=== PATIENT | male | born 1980 | race Hispanic/Latino ===

== ENCOUNTER 2018-10-22 19:44 | Inpatient (IN) | payer SELFPAY ==
[2018-10-22] MEDS ORDERED: Mag-Al 1200 mg/1200 mg/30 ML UDCUP ONE (20:25)
[2018-10-22] MEDS ORDERED: Lidocaine Viscous Sol 2% 15 ml UD Cup ONE (20:25)
[2018-10-22 20:31] LABS: #Basophils 0.1 thou/uL (0.0-0.2); #Eosinphils 0.1 thou/uL (0.0-0.7); #Lymphocytes 2.8 thou/uL (1.20-3.40); #Monocytes 0.8 thou/uL (0.11-0.59); #Neutrophils 4.6 thou/uL (1.40-6.50); %Basophils 1.5 % (0.0-1.0); %Eosinophils 1.6 % (0.0-10.0); %Lymphocytes 32.8 % (21.0-51.0); %Monocytes 9.9 % (0.0-10.0); %Neutrophils 54.3 % (42.0-75.0); Hemoglobin 13.9 g/dL (14.0-18.0); Mean Corpuscular HGB CONC 35.5 g/dL (32.0-36.0); Mean Corpuscular Hemoglobin 31.9 pg (27.0-31.0); Mean Corpuscular Volume 89.8 fL (78.0-98.0); Mean Platelet Volume 7.2 fL (7.4-10.4); Platelet Count 312 thou/uL (130-400); RBC Distribution Width 13.9 % (11.5-14.5); Red Blood Cell (RBC) Count 4.35 mill/uL (4.70-6.10); White Blood Cell (WBC) Count 8.5 thou/uL (4.8-10.8)
[2018-10-22 20:33] LABS: Bacteria/HPF None Seen HPF (None Seen); Bilirubin Negative (Negative); Blood, Urine 1+ (Negative); Clarity Clear (Clear); Glucose, Urine (Dipstick) Normal (Negative); Leukocyte Negative Leu/uL (Negative); Nitrite Negative (Negative); Protein, Urine (Dipstick) 20 mg/dL (Neg-Trace); RBC/HPF 0-3 HPF (0-3); Squamous Epithelial None Seen HPF (0-3); Urobilinogen Normal mg/dL (Less than 2); WBC/HPF 0-3 HPF (0-3)
[2018-10-22 20:51] LABS: ALT (SGPT) 10 U/L (8-55); AST (SGOT) 21 U/L (5-34); Albumin 4.4 g/dL (3.5-5.0); Alkaline Phosphatase 87 U/L (40-150); Anion Gap 15 mmol/L (10-20); BUN (Urea Nitrogen) 29 mg/dL (8.9-20.6); Bilirubin, Total 0.8 mg/dL (0.2-1.2); Calc. Creatinine Clearance 0 mL/min (70-130); Calcium 9.2 mg/dL (7.8-10.44); Carbon Dioxide 25 mmol/L (22-29); Chloride 91 mmol/L (98-107); Estimated GFR-MDRD 25; Globulin 4.1 g/dL (2.4-3.5); Glucose 96 mg/dL (70-105); Lipase 33 U/L (8-78); Protein, Total 8.5 g/dL (6.0-8.3); Sodium 128 mmol/L (136-145)
[2018-10-22 20:55] LABS: Potassium 2.9 mmol/L (3.5-5.1)
[2018-10-22] MEDS ORDERED: Magnesium 2 GM/50 ML BAG (IN WATER) ONE (21:56)
[2018-10-22] MEDS ORDERED: hydrALAZINE 20 MG/ML VIAL SLOW IVP PRN (22:09)
[2018-10-22] MEDS ORDERED: Senokot S 8.6-50 MG TAB PO PRN (22:09)
[2018-10-22] MEDS ORDERED: Nitroglycerin 0.4 MG TAB (25 Tab Bottle) SL PRN (22:09)
[2018-10-22] MEDS ORDERED: Benzonatate 100 MG CAP PO PRN (22:09)
[2018-10-22] MEDS ORDERED: cloNIDine 0.1 MG TAB PO PRN (22:09)
[2018-10-22] MEDS ORDERED: Bisacodyl 5 MG TAB PO PRN (22:09)
[2018-10-22] MEDS ORDERED: Diabetic Tussin 200 MG/10 ML UDCUP PO PRN (22:09)
[2018-10-22] MEDS ORDERED: Ondansetron PF 4 MG/2 ML Vial IVP PRN (22:09)
[2018-10-22] MEDS ORDERED: Sodium Chloride 0.65% Nasal 44 ML BOT EA NARE PRN (22:09)
[2018-10-22] MEDS ORDERED: Loratadine 10 MG TAB PO PRN (22:09)
[2018-10-22] MEDS ORDERED: Mag-Al Plus 1200 MG/1200 MG/120 MG/30 ML UDCUP PO PRN (22:15)
[2018-10-22] MEDS ORDERED: Sodium Chloride 0.9% 1,000 ML IV SCH (22:15)
[2018-10-22] MEDS ORDERED: Potassium Chloride 20 MEQ TAB PO SCH (22:45)
[2018-10-22] MEDS ORDERED: Clindamycin/D5W 300 MG/50 ML BAG IVPB SCH (23:59)
--- NOTE | 2018-10-23 00:35 | HP ---
PRIMARY CARE PHYSICIAN: None. CHIEF COMPLAINT: Abdominal pain and mouth pain. HISTORY OF PRESENT ILLNESS: Mr. Mock is a 37-year-old male, who recently moved here from [place] a month ago, who then came to the emergency room with varied complaints. He told the emergency room physician that he was having abdominal pain, for which he received Maalox in the ER with improvement in his symptoms. By the time I evaluated the patient, his main complaint was now pain in his mouth, roof of the mouth and his jaw, upper and lower. He is Burkinan-speaking only and a customer solutions coordinator lucia was used with some difficulty. According to the ER physician, he has seen physicians in [place] about his abdominal pain, which is ongoing for about 8 years. He denies any recent illnesses, but when I asked him, he said yes he has been having some fevers, but could not grade it. He denies any blood in his stools. He denies any weight loss. He denies any chest pain, shortness of breath, dysuria, frequency, or urgency. He keeps pointing to his mouth and complains of pain in his lower jaw, upper jaw and inside of the mouth. In the emergency room upon presentation, he was hemodynamically stable except blood pressure being elevated to 155/94. His lab work was impressive for a potassium of 2.9, sodium 128, chloride of 91. His BUN was 29 and creatinine 2.80. No baseline available. Lipase was normal. Urinalysis was normal. His WBC count is within normal limit and there was no left shift. He did report that he has not been able to eat or drink very well because of his mouth and teeth pain. He was given GI cocktail in the emergency room with improvement in his symptoms. He is now being admitted under observation status for acute renal insufficiency and hypokalemia. PAST MEDICAL HISTORY: Unknown. Sexually transmitted disease. PAST SURGICAL HISTORY: Denies any surgeries. PSYCHIATRIC HISTORY: Depression. SOCIAL HISTORY: Moved here from [place] 1 month ago. He drinks socially, but denies any smoking or drug abuse. FAMILY HISTORY: He reports high blood pressure in his mother and cirrhosis of liver. ALLERGIES: NO KNOWN MEDICATION ALLERGIES. CURRENT MEDICATIONS: None. Reviewed with the patient. REVIEW OF SYSTEMS: A 14-point review of system is done and it is negative except for those mentioned in the history and physical. LABORATORY DATA: CBC is unremarkable. Serum chemistry shows sodium 128, potassium 2.9, chloride 91, BUN 29, creatinine 2.80. Magnesium is normal. Lipase is normal. Urinalysis has no glucose, ketones, or protein in the urine. No bacteria. A 12-lead EKG by my review shows sinus rhythm at 62 beats per minute with some Q waves in the inferior leads. Left ventricular hypertrophy seen. PHYSICAL EXAMINATION: VITAL SIGNS: Upon presentation, blood pressure 155/94, pulse of 60, respirations 16, saturating 99% on room air, temperature 97.9. GENERAL: No acute distress. Lying in bed comfortably. He appears well nourished and well kept. HEENT: There is a small swelling in the buccal mucosa of his right cheek. He has poor dental hygiene, but no obvious abscesses were seen. Mucous membrane is moist and pink. No oropharyngeal exudate or erythema. Head is normocephalic and atraumatic. NECK: Supple without any lymphadenopathy, JVD, or bruit. CHEST: Clear to auscultation without any wheezing, rales, or rhonchi. Rate and rhythm are regular without any murmurs, rubs, or gallops. ABDOMEN: Soft, nontender, nondistended with positive bowel sounds. EXTREMITIES: Free of any cyanosis, clubbing, or edema. NEUROLOGICAL: Nonfocal. SKIN: Free of any rashes or bruises. IMPRESSION AND PLAN: 1. Acute renal insufficiency. This is most likely due to poor p.o. intake because of the teeth pain and dehydration. He will be gently resuscitated with normal saline keeping a close eye on his sodium numbers. We will request consultation with Nephrology in the morning and obtain a renal ultrasound. The patient does not have any blood in his urine suggestive of nephrolithiasis. He is also not spilling blood or protein in the urine suggestive of chronic renal disease. 2. Hyponatremia. I suspect hypovolemic because of dehydration. We will check urine sodium and osmolality as well as serum osmolality. At this time, we will start him on normal saline and recheck sodium in few hours. No baseline is available. The patient seems to be asymptomatic with this. 3. Hypokalemia. The patient has received 40 mEq of the potassium chloride IV in the ER and we will repeat one more dose. Magnesium was checked and was within normal limits. We will recheck in the morning. 4. Hypertension. We will monitor and add p.r.n. antihypertensives. If his blood pressure continues to be elevated, he can be started on low-dose amlodipine for long-term. 5. Oral pain. I suspect a dental abscess, which is not visible without closer oral examination. We will empirically treat him with oral antibiotics namely clindamycin for now. He does not have any evidence of sepsis or widespread infection at this time. If his symptoms do not resolve, oral imaging is warranted. At this time, he simply needs to follow up with a dentist for possible teeth extraction and further x-rays. 6. Deep venous thrombosis and gastrointestinal prophylaxis. DISPOSITION: Mr. Nish Smith is currently being admitted to the hospital with hyponatremia, hypokalemia, and renal failure. Estimated length of stay is less than 2 midnights. Further management will depend upon his clinical course. Job ID: [id number]
[2018-10-23] MEDS: Potassium Chloride 20 MEQ in Premix Bag 1 BAG IVPB SCH ×2 (01:12→03:18)
[2018-10-23] MEDS: Clindamycin/D5W 300 MG in Premix Bag 1 BAG IVPB SCH ×5 (02:23→23:33)
[2018-10-23 05:32] LABS: #Basophils 0.1 thou/uL (0.0-0.2); #Eosinphils 0.1 thou/uL (0.0-0.7); #Monocytes 0.8 thou/uL (0.11-0.59); #Neutrophils 4.5 thou/uL (1.40-6.50); %Basophils 0.9 % (0.0-1.0); %Eosinophils 1.8 % (0.0-10.0); %Lymphocytes 26.9 % (21.0-51.0); %Monocytes 11.2 % (0.0-10.0); %Neutrophils 59.1 % (42.0-75.0); Hemoglobin 12.9 g/dL (14.0-18.0); Mean Corpuscular HGB CONC 35.5 g/dL (32.0-36.0); Mean Corpuscular Hemoglobin 32.2 pg (27.0-31.0); Mean Corpuscular Volume 90.6 fL (78.0-98.0); Mean Platelet Volume 7.3 fL (7.4-10.4); Platelet Count 284 thou/uL (130-400); RBC Distribution Width 13.9 % (11.5-14.5); Red Blood Cell (RBC) Count 4.02 mill/uL (4.70-6.10); White Blood Cell (WBC) Count 7.5 thou/uL (4.8-10.8)
[2018-10-23 05:50] LABS: Anion Gap 13 mmol/L (10-20); BUN (Urea Nitrogen) 27 mg/dL (8.9-20.6); Calc. Creatinine Clearance 35 mL/min (70-130); Calcium 8.9 mg/dL (7.8-10.44); Carbon Dioxide 28 mmol/L (22-29); Chloride 97 mmol/L (98-107); Estimated GFR-MDRD 30; Glucose 101 mg/dL (70-105); Potassium 3.4 mmol/L (3.5-5.1); Sodium 135 mmol/L (136-145)
[2018-10-23] MEDS ORDERED: Potassium Chloride 20 MEQ TAB PO SCH (07:45)
[2018-10-23] MEDS: Saccharomyces boulardii 250 MG CAP PO SCH (07:58)
[2018-10-23] MEDS: Sodium Chloride 0.9% 1,000 ML IV SCH ×2 (07:58→15:59)
[2018-10-23] MEDS: Heparin 5,000 UNITS/ML VIAL SC SCH ×2 (07:58→21:40)
--- NOTE | 2018-10-23 08:07 | ULT ---
Renal sonogram HISTORY: Renal insufficiency. FINDINGS: The right kidney measures up to 7.4 cm. Mild cortical thinning. No hydronephrosis. Left kidney is partially obscured by extensive bowel gas. It measures up to 5.4 cm. Thinning of the c ortex. No hydronephrosis. Urinary bladder obscured by bowel gas. IMPRESSION: Renal cortical thinning and atrophy. No evidence of urinary tract obstruction.
--- NOTE | 2018-10-23 10:04 | CON ---
DATE OF CONSULTATION: 10/23/2018 REASON FOR CONSULTATION: Acute renal failure. CHIEF COMPLAINT: Oral pain. HISTORY OF PRESENT ILLNESS: The patient is a 38-year-old male who just recently moved from [place] to this area, who presents to the ER with complaints of oral pain associated with poor oral intake as well as abdominal pain, which has improved with Maalox, administered in the ER. The patient was found to have elevated creatinine, hence Nephrology consult. The patient reported developing oral sores after an oral sex several months ago in [place] and has been having oral pain since then. He also reported dental caries for which all bad teeth are removed and he uses dentures, which are not present at this time. He reported some occasional fever, but denied nausea, vomiting, change in bowel habit, loose stools, dysuria, hematuria, shortness of breath, chest pain, leg swelling, or headache. The patient denied prior history of kidney disease and also denied any family member with kidney disease on dialysis. He also denied use of NSAIDs, but admitted to using some medication which he was prescribed while in [place], and he does not know their names. PAST MEDICAL HISTORY: Status post sexually transmitted infection. PAST SURGICAL HISTORY: None. PSYCHIATRIC HISTORY: Depression. FAMILY HISTORY: Reported high blood pressure and liver cirrhosis in mother and prostate problem in father. SOCIAL HISTORY: The patient recently moved from [place]. Drinks alcohol occasionally, but denied smoking or recreational drug use. ALLERGIES: NO KNOWN DRUG ALLERGIES REPORTED. HOME MEDICATIONS: None currently. REVIEW OF SYSTEMS: Twelve-point review of systems performed was negative other than pertinent positives and negatives included in the History of Present Illness. DIAGNOSTIC DATA: CBC today showed WBC count of 7.5, hemoglobin of 12.9, MCV of 90.6, and platelets of 284. Of note, on presentation yesterday, hemoglobin was 13.9. BMP today showed sodium 135, potassium 3.4, chloride 97, CO2 of 28, BUN 27, creatinine 2.44, glucose 101, and calcium 8.9. On presentation yesterday, however, sodium was 128, potassium 2.9, chloride 91, CO2 of 25, BUN 29, and creatinine 2.80. Urinalysis on presentation yesterday showed light yellow clear urine with specific gravity of 1.009 and pH of 6.0, ketone, nitrite, bilirubin, and leukocyte esterase were all negative. White blood was 1+; however, microscopy showed 0 to 3 rbc and wbc. Urine osmolality performed yesterday was 259 while urine sodium was less than 20. ASSESSMENT AND PLAN: 1. Acute kidney injury. This most likely due to hemodynamic factors related to poor oral intake due to oral pain. Chronic kidney disease at baseline, however, could not be ruled out. Creatinine is trending down with IV fluids. We will continue IV fluid and monitor renal function. We will also get renal ultrasound. 2. Hyponatremia: This was felt to be due to volume depletion with appropriate ADH secretion. Serum sodium is trending up with IV fluid. We will continue same. 3. Hypokalemia: This was felt to be due to poor oral intake and gross body depletion. Repleted with appropriate increase. We will give additional 20 mEq of potassium chloride. 4. Oral pain: Deferred to primary attending for treatment. We will follow along with you. Many thanks for involving us in the care of this patient. Job ID: [id number]
[2018-10-23 14:15] VITALS: BMI 22.0
--- NOTE | 2018-10-23 18:32 | PRG ---
DATE OF SERVICE: 10/23/2018 SUBJECTIVE: Mr. Nish Smith is a 38-year-old male, who recently moved to this country from [place] one month ago. He presents with several complaints including abdominal pain and oral pain. He has been admitted with acute kidney injury, although his baseline is unknown. He has been seen in consultation with Dr. Merritt. Using an stars coordinator, I have interviewed the patient. He continues to complain of some diffuse jaw and oral pain that is difficult to describe. He is concerned that he had the same pain after an oral sexual encounter, and was told that his oral pain was due to an STD. Regarding his abdominal pain, it was improved with Mylanta in the ER, although he continues to complain of some pain today. He states that he has had this pain for many years and has seen doctors in [place]. He was given medications, but he cannot remember what these are. OBJECTIVE: VITAL SIGNS: Blood pressure is 109/68, pulse 54, O2 saturation is 99% on room air, respirations 16, temperature 98.2. GENERAL: This is a thin male, resting comfortably in bed, in no acute distress. HEENT: His head is atraumatic and normocephalic. He has no upper dentition. I have examined his oral mucosa and can find no evidence of obvious lesions or blisters. NECK: Trachea is midline. No JVD. CV: S1 and S2. Regular rate and rhythm. No appreciable murmurs, rubs, or gallops. LUNGS: Regular respiratory rate and pattern, overall clear. ABDOMEN: Positive bowel sounds. Soft. EXTREMITIES: No edema. SKIN: Warm and dry. LABORATORY DATA: WBC 7.5, hemoglobin 12.9, hematocrit 36.4, platelets are 284. Chemistry; sodium 135, potassium 3.4, anion gap 13, BUN 27, creatinine 2.44. ASSESSMENT: 1. Acute kidney injury at presentation, originally suspected secondary to dehydration, unfortunately we have no previous baseline, although today renal ultrasound shows renal cortical thinning and atrophy with no evidence of urinary tract obstruction. 2. Abdominal pain, unclear etiology, the patient tolerating full diet, normal bowel movements. 3. Oral pain, unclear etiology. Dental abscess originally suspected. 4. Hypokalemia on arrival, improved after repletion. PLAN: Dr. Merritt of Nephrology has been consulted and very much appreciate his recommendations. Regarding his abdominal pain and his continued oral pain, I will obtain a mandible x-ray to rule out any gross abnormalities, and I have advised the patient to seek dental care with a dentist. We will continue to monitor his kidney function closely and will defer to Dr. Merritt for management. I will discuss the case with him tomorrow. We will continue IV clindamycin for prophylactic coverage of dental abscess at this time. Further recommendations based on hospital course. Job ID: [id number]
--- NOTE | 2018-10-23 19:04 | RAD ---
2 views of abdomen: 10/23/2018 COMPARISON: None HISTORY: Pain FINDINGS: Upright imaging demonstrates no free intraperitoneal air or air-fluid levels. The bowel gas pattern appears nonobstructed. There is scattered stool overlying the colon and there is probable debris within the stomach. IMPRESSION: No evidence for free intraperitoneal air or small bowel obstruction.
--- NOTE | 2018-10-23 19:13 | RAD ---
SIX VIEWS MANDIBLE: 10/23/18 HISTORY: Diffuse jaw and dental pain. FINDINGS: There is no evidence of a fracture. No lytic or sclerotic osseous lesion is identified. Remaining vis ualized osseous structures have a normal appearance. The limited visualized paranasal sinuses also ap pear clear. IMPRESSION: No acute osseous abnormality is seen involving the mandible. POS: [place]
[2018-10-23] MEDS: Acetaminophen 325 MG TAB PO PRN (23:33)
[2018-10-24 05:04] LABS: Anion Gap 13 mmol/L (10-20); BUN (Urea Nitrogen) 24 mg/dL (8.9-20.6); BUN/Creatinine Ratio 11.27; Calc. Creatinine Clearance 40 mL/min (70-130); Calcium 8.9 mg/dL (7.8-10.44); Carbon Dioxide 29 mmol/L (22-29); Chloride 97 mmol/L (98-107); Estimated GFR-MDRD 35; Glucose 92 mg/dL (70-105); Phosphorus 3.5 mg/dL (2.3-4.7); Sodium 136 mmol/L (136-145)
[2018-10-24 05:09] LABS: Potassium 2.9 mmol/L (3.5-5.1)
[2018-10-24] MEDS ORDERED: Potassium Chloride 20 MEQ in Premix Bag 1 BAG IVPB SCH (05:30)
[2018-10-24] MEDS ORDERED: Potassium Chloride 20 MEQ TAB PO SCH ×2 (05:30→07:30)
[2018-10-24] MEDS: Sodium Chloride 0.9% 1,000 ML IV SCH ×3 (05:50→23:40)
[2018-10-24] MEDS: Clindamycin/D5W 300 MG in Premix Bag 1 BAG IVPB SCH ×3 (05:51→18:03)
[2018-10-24] MEDS: Heparin 5,000 UNITS/ML VIAL SC SCH ×2 (08:37→23:38)
[2018-10-24] MEDS: Saccharomyces boulardii 250 MG CAP PO SCH (08:38)
--- NOTE | 2018-10-24 11:11 | PRG ---
DATE OF SERVICE: 10/24/2018 SUBJECTIVE: A 38-year-old male, recently relocated from [place], who has been followed up for renal failure. The patient still complains of some jaw pain, but abdominal pain has subsided. He is tolerating oral intake more. Denied nausea, vomiting, dysuria, hematuria, or leg swelling. OBJECTIVE: VITAL SIGNS: Temperature 97.8, pulse 61, respiratory rate 16, SpO2 of 99% on room air, blood pressure is 129/79. GENERAL: Middle-age male, in no obvious distress. Afebrile. Anicteric. Acyanotic. HEENT: Normocephalic, atraumatic. Pupils are reacting to light. All upper teeth are removed. Oral mucosa, however, is moist. CARDIOVASCULAR: Regular rhythm and rate with normal heart sounds 1 and 2. RESPIRATORY: Good air entry bilaterally with no crackle or rhonchi or use of accessory muscles. GI: Full, soft, nontender, nondistended with normal bowel sounds. EXTREMITIES: Grossly normal looking, atraumatic with no edema, erythema, or cyanosis. Distal pulses are palpable. NEUROLOGIC: Conscious, alert, oriented x3 with appropriate mental status. Cranial nerves 2 through 12 are grossly intact. The patient moves all extremities. DIAGNOSTIC DATA: Renal function panel today showed sodium 136, potassium 2.9, chloride 97, CO2 of 29, BUN 24, creatinine 2.13, glucose 92, calcium 8.9, phosphorus 3.5, albumin 4.0. Magnesium is 1.9. 25-hydroxy vitamin D total is 34.0. PTH intact is 272.9. Of note, on presentation, creatinine was 2.8. Renal ultrasound showed bilateral small kidneys with right measuring 7.4 and left measuring 5.4. Thinning of the cortex was noted, but no hydronephrosis. ASSESSMENT AND PLAN: 1. Acute kidney injury superimposed on chronic kidney disease. Elevated PTH and small kidneys are consistent with chronic kidney disease. 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 Creatinine is trending downward from 2.8 to 2.1 with IV fluids, consistent with reversible component. We will continue IV fluid until creatinine drops to a pauline and stabilize. 2. Hypokalemia: Due to poor intake as well as saline-induced diuresis. We will replete with potassium chloride and monitor levels. 3. Secondary hyperparathyroidism: Due to chronic kidney disease. . Job ID: [id number]
[2018-10-24] MEDS ORDERED: Acyclovir 400 mg Tablet PO SCH (15:15)
--- NOTE | 2018-10-24 16:55 | PRG ---
DATE OF SERVICE: 10/24/2018 SUBJECTIVE: Mr. Nish Smith is a 38-year-old male, who recently moved to this country from [place] about 1 month ago. He presents with several complaints including abdominal pain and oral pain. He has been admitted with acute on chronic kidney injury, although his baseline creatinine is unknown. He is being seen in consultation with Dr. Merritt. The patient continues to complain of oral pain throughout his mouth. He denies any further abdominal pain. He has no other complaints today. OBJECTIVE: VITAL SIGNS: Blood pressure is 127/82, pulse is 58, O2 saturation is 100% on room air, respirations 14, temperature 98.6. GENERAL: The patient is a thin, small statured male, resting comfortably in bed, in no acute distress HEENT: Head is atraumatic and normocephalic. Careful inspection of the oral mucosa reveals no obvious vesicles or lesions. NECK: Trachea is midline. No JVD. CV: S1 and S2. Regular rate and rhythm. No appreciable murmurs, rubs, or gallops. LUNGS: Regular respiratory rate and pattern. Clear to auscultation bilaterally. ABDOMEN: Positive bowel sounds. Soft, nontender. EXTREMITIES: No edema. SKIN: Warm and dry. No rashes or lesions. NEUROLOGIC: The patient is nonfocal. LABORATORY DATA: Sodium 136, potassium 2.9, chloride 97, carbon dioxide 29, BUN is 24, creatinine 2.13. ASSESSMENT: 1. Acute on chronic kidney disease, creatinine continues to trend down, although baseline is on known. 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 2. Oral pain. The patient upon further interview, the patient describes a previous infection consistent with herpes outbreak. 3. Persistent hypokalemia. PLAN: I have discussed this case with Dr. Merritt of Nephrology, who recommends continued IV fluid resuscitation until the patient's baseline creatinine is discovered. Regarding his oral pain, I will go ahead and cover him with acyclovir for presumed herpes outbreak. We will continue clindamycin in the meantime. I suspect that he will be discharged in the near future, when cleared by Nephrology. Further recommendations based on hospital course. Job ID: [id number]
[2018-10-24] MEDS: Acetaminophen 325 MG TAB PO PRN ×2 (18:03→23:39)
[2018-10-24] MEDS: Potassium Chloride 20 MEQ TAB PO SCH (18:03)
[2018-10-24] MEDS: Acyclovir 400 mg Tablet PO SCH (23:39)
[2018-10-25] MEDS: Clindamycin/D5W 300 MG in Premix Bag 1 BAG IVPB SCH ×4 (02:10→18:24)
[2018-10-25 05:27] LABS: #Basophils 0.1 thou/uL (0.0-0.2); #Eosinphils 0.3 thou/uL (0.0-0.7); #Lymphocytes 2.5 thou/uL (1.20-3.40); #Monocytes 0.8 thou/uL (0.11-0.59); #Neutrophils 3.5 thou/uL (1.40-6.50); %Basophils 1.2 % (0.0-1.0); %Eosinophils 3.7 % (0.0-10.0); %Lymphocytes 35.7 % (21.0-51.0); %Monocytes 10.5 % (0.0-10.0); Hemoglobin 12.1 g/dL (14.0-18.0); Mean Corpuscular HGB CONC 35.1 g/dL (32.0-36.0); Mean Corpuscular Hemoglobin 32.6 pg (27.0-31.0); Mean Corpuscular Volume 92.9 fL (78.0-98.0); Mean Platelet Volume 7.8 fL (7.4-10.4); Platelet Count 269 thou/uL (130-400); Red Blood Cell (RBC) Count 3.71 mill/uL (4.70-6.10); White Blood Cell (WBC) Count 7.1 thou/uL (4.8-10.8)
[2018-10-25 05:58] LABS: Albumin 3.6 g/dL (3.5-5.0); Anion Gap 11 mmol/L (10-20); BUN (Urea Nitrogen) 20 mg/dL (8.9-20.6); Calc. Creatinine Clearance 43 mL/min (70-130); Calcium 8.7 mg/dL (7.8-10.44); Carbon Dioxide 23 mmol/L (22-29); Chloride 105 mmol/L (98-107); Estimated GFR-MDRD 38; Glucose 82 mg/dL (70-105); Phosphorus 2.9 mg/dL (2.3-4.7); Potassium 3.5 mmol/L (3.5-5.1); Sodium 135 mmol/L (136-145)
--- NOTE | 2018-10-25 08:31 | PRG ---
DATE OF SERVICE: 10/25/2018 SUBJECTIVE: A 38-year-old male recently relocated from [place], who presented with abdominal pain and jaw pain. The patient was; however, found to have renal insufficiency necessitating Nephrology consult. Abdominal pain has resolved, while jaw pain has subsided. There is no history of nausea or vomiting. The patient remained afebrile. OBJECTIVE: VITAL SIGNS: Temperature 97.7, pulse 58, respiratory rate 16, SpO2 of 98% on room air, and blood pressure is 125/84. GENERAL: Middle-age male, in no distress. Afebrile. Anicteric. Acyanotic. HEENT: Normocephalic and atraumatic. Oral mucosa is moist. CARDIOVASCULAR: Regular rhythm and rate with normal heart sounds one and two. RESPIRATORY: Good air entry bilaterally with no crackle or rhonchi or use of accessory muscles. GI: Abdomen is full, soft, nontender, and nondistended with normal bowel sounds. EXTREMITIES: Grossly normal looking atraumatic with no edema or erythema. Distal pulses are palpable. NEUROLOGIC: Conscious, alert, and oriented x3 with appropriate mental status. Cranial nerves 2 through 12 are grossly intact. DIAGNOSTIC DATA: CBC showed WBC count of 7.1, hemoglobin of 12.1, MCV of 92.9, and platelet of 269. Renal function panel showed sodium 135, potassium 3.5, chloride 105, CO2 of 23, creatinine 1.98, glucose 82, calcium 8.7, phosphorus 2.9, and albumin 3.6. ASSESSMENT AND PLAN: 1. Acute kidney injury superimposed on chronic kidney disease stage 3: This most likely due to hemodynamic factors related to volume depletion. Creatinine has improved from 2.8 to 1.9. This seems to have stabilized at around 2. 2. Chronic kidney disease stage 3: Etiology is unclear, but ultrasound showed small kidneys. 3. 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 The patient admitted to use of nonsteroidal anti-inflammatory drugs in [place]. Biopsy could not be obtained at this time due to shrunken kidney. 4. Secondary hyperparathyroidism. PLAN: We will discontinue IV fluid therapy. Neihart oral intake is advised. The patient is to follow up in 2 weeks, precisely on November 04 at 1 o'clock. He also was instructed to do repeat renal function panel on November 03. DISPOSITION: The patient can be discharged from Nephrology point of view. Job ID: [id number]
[2018-10-25] MEDS: Potassium Chloride 20 MEQ TAB PO SCH ×2 (09:23→16:14)
[2018-10-25] MEDS: Acetaminophen 325 MG TAB PO PRN (09:23)
[2018-10-25] MEDS: Acyclovir 400 mg Tablet PO SCH ×2 (09:23→16:14)
[2018-10-25] MEDS: Saccharomyces boulardii 250 MG CAP PO SCH (09:23)
[2018-10-25] MEDS: Heparin 5,000 UNITS/ML VIAL SC SCH (09:24)
[2018-10-25 16:14] VITALS: BP 159/93; TEMP 97.8
--- NOTE | 2018-10-25 23:58 | DIS ---
DATE OF ADMISSION: 10/22/2018 DATE OF DISCHARGE: 10/25/2018 CHIEF COMPLAINT ON ADMISSION: Abdominal pain and mouth pain. DISCHARGE DIAGNOSES: 1. [id number] kidney disease, baseline creatinine around 2. Creatinine at baseline, resolved, stage III. 2. Abdominal pain, abdominal x-ray negative for any acute pathology, suspect mild gastritis, relieved with proton pump inhibitor. 3. Oral pain, presumed secondary to possible oral herpes simplex virus infection versus oral abscess. 4. Persistent hypokalemia, status post repletion. BRIEF HOSPITAL COURSE: Mr. Nish Smith is a 38-year-old Arabic-speaking only male, who recently moved to this country from [place] 1 month ago. He presented to the emergency department with a chief complaint of abdominal pain and oral pain. The patient stated that he had received some medications for his persistent abdominal pain in [place], but could not recall what the names were. He has not been on medications for some time. Regarding his oral pain, initially a dental abscess was suspected. The patient has no dentition on the top of his mouth and uses dentures. He stated that the pain was consistent with a previous STD that he was told he had an outbreak of in his mouth in [place]. The pain was similar. He did not know what the infection was, but after further interview with the patient, I suspect this was a herpes outbreak. His lab work was notable for an initial creatinine of 2.8. Nephrology was consulted and recommended IV fluid resuscitation. Also on arrival, he was hyponatremic with a sodium of 128, and his potassium was 2.9. He was given IV fluid resuscitation fairly aggressively, and his creatinine did trend down to 1.98, which Dr. Merritt thinks is around his baseline. 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 He did have a renal ultrasound, which did reveal renal cortical thinning and atrophy consistent with chronic disease. He was initiated on prophylactic antibiotic coverage for potential dental abscess with clindamycin 600 mg IV q.6 along with acyclovir to cover possible herpes outbreak, although upon my oral exam, I could never appreciate any vesicles, concerning patches or lesions in the mouth consistent with infection. His abdominal pain completely resolved with PPI. He continues to complain of some oral pain, although it is improved somewhat since admission. His oral intake has greatly improved. DISCHARGE DISPOSITION: Home. DISCHARGE CONDITION: Stable. FOLLOWUP: We have explained in detail that the patient needs to establish a PCP with [facility] to continue to receive his medical care and for followup care on his mouth with a dentist. Regarding his renal followup, he will follow up with Dr. Merritt in 2 weeks on November 04 at 1 p.m. He will have repeat renal function panel on November 03 prior to his appointment. All questions answered to the patient's satisfaction. DISCHARGE MEDICATIONS: The patient will be discharged on: 1. Acyclovir 400 mg p.o. t.i.d. for the next 4 days. 2. Clindamycin 300 mg p.o. q.8 for the next 5 days. 3. Protonix 40 mg daily. 4. Potassium supplement of 20 mEq one tablet p.o. daily. The patient discharged in good condition this afternoon. Job ID: [id number]
== END 2018-10-25 19:07 | disposition home or self-care (01) | DRG 683 ==
LOC: ERS 19:44 → 2SW 23:30 → OBSVTOIN 23:30 → 2NO 10-24 20:06
PROVIDERS: ADMIT Internal Medicine; ATTEND Internal Medicine
DX: N17.9 Acute kidney failure, unspecified (principal); B00.89 Other herpesviral infection; E87.1 Hypo-osmolality and hyponatremia; I12.9 Hypertensive chronic kidney disease with stage 1 through stage 4 chronic kidney disease, or unspecified chronic kidney disease; N18.3 Chronic kidney disease, stage 3 (moderate); E87.5 Hyperkalemia; K29.70 Gastritis, unspecified, without bleeding; K04.7 Periapical abscess without sinus; G62.9 Polyneuropathy, unspecified; F32.9 Major depressive disorder, single episode, unspecified; E86.9 Volume depletion, unspecified; N25.81 Secondary hyperparathyroidism of renal origin
CPT/HCPCS: 36415; 70110; 74019; 76770; 80048; 80053; 80069; 81003; 81015; 82306; 83690; 83735; 83930; 83935; 83970; 84300; 85025; 90471; 90732; 93005; 96365; 96367; G0009; J1644; J3475; J3480; J3490

== ENCOUNTER 2020-02-24 15:00 | Emergency (ER) | payer SELFPAY ==
[2020-02-24] MEDS ORDERED: Boostrix 0.5 ML (Tdap) VIAL ONE (15:23)
--- NOTE | 2020-02-24 16:48 | RAD ---
Exam:Right hand 3 views HISTORY: Fourth digit crush injury, 2 weeks ago. Swelling and decreased movement. COMPARISON: None FINDINGS: Soft tissue swelling involving the fourth digit. No radiopaque foreign body. No fracture, c ortical irregularity or periosteal reaction. IMPRESSION: Soft tissue swelling, without evidence of fracture or foreign body.
== END 2020-02-24 17:15 | disposition home or self-care (01) ==
LOC: ERS 15:00
DX: S60.041A Contusion of right ring finger without damage to nail, initial encounter (principal); W22.8XXA Striking against or struck by other objects, initial encounter
CPT/HCPCS: 90471; 90715

== ENCOUNTER 2024-11-28 11:47 | Emergency (ER) | payer SELFPAY ==
[2024-11-28 12:20] LABS: #Basophils 0.06 10x3/uL (0.0-0.2); #Eosinophils 0.45 10x3/uL (0.0-0.7); #Monocytes 1.21 10x3/uL (0.11-0.59); #Neutrophils 7.52 10x3/uL (1.40-6.50); %Basophils 0.6 % (0.0-1.0); %Eosinophils 4.4 % (0.0-10.0); %Lymphocytes 10.1 % (21.0-51.0); %Monocytes 11.7 % (0.0-10.0); %Neutrophils 72.8 % (42.0-75.0); Hematocrit 27.8 % (42.0-52.0); Hemoglobin 9.3 g/dL (14.0-18.0); Mean Corpuscular Hemoglobin 29.2 pg (27.0-31.0); Mean Corpuscular Volume 87.4 fL (78.0-98.0); Platelet Count 357 10x3/uL (130-400); Red Blood Cell (RBC) Count 3.18 mill/uL (4.70-6.10); White Blood Cell (WBC) Count 10.32 10x3/uL (4.8-10.8)
[2024-11-28] MEDS ORDERED: Lidocaine 1% w/Epinephrine 1:100K 20 ML VIAL ONE (12:40)
[2024-11-28 12:46] LABS: ALT (SGPT) 8 U/L (Less than 45); AST (SGOT) 21 U/L (11-34); Albumin 3.5 g/dL (3.1-4.5); Alkaline Phosphatase 68 U/L (40-110); Anion Gap 17 mmol/L (10-20); BUN (Urea Nitrogen) 21 mg/dL (8.9-20.6); Bilirubin, Total 0.4 mg/dL (0.3-1.2); Calc. Creatinine Clearance 0 mL/min (70-130); Calcium 8.8 mg/dL (7.8-10.44); Carbon Dioxide 23 mmol/L (22-29); Chloride 101 mmol/L (98-107); Globulin 3.5 g/dL (2.4-3.5); Glucose 126 mg/dL (70-105); Potassium 3.7 mmol/L (3.5-5.1); Sodium 137 mmol/L (136-145)
== END 2024-11-28 13:27 | disposition home or self-care (01) ==
LOC: ERS 11:47
DX: L02.211 Cutaneous abscess of abdominal wall (principal); I10 Essential (primary) hypertension; N28.9 Disorder of kidney and ureter, unspecified; Z55.6 Problems related to health literacy
CPT/HCPCS: 10060; 80053; 85025; 99283

== ENCOUNTER 2024-12-02 16:54 | Emergency (ER) | payer SELFPAY ==
[2024-12-02] MEDS ORDERED: Bacitracin 1 PK ONE (18:15)
== END 2024-12-02 19:00 | disposition home or self-care (01) ==
LOC: ERS 16:54
DX: Z48.01 Encounter for change or removal of surgical wound dressing (principal); I10 Essential (primary) hypertension
CPT/HCPCS: 99282